=== PATIENT | male | born 1965 | race Caucasian/White ===

== ENCOUNTER 2023-08-07 19:13 | Emergency (ER) | payer OTHER ==
[2023-08-07 19:25] VITALS: BP 166/92; PULSE 62; RESP 18; TEMP 98.2; BMI 24.1
[2023-08-07] MEDS ORDERED: IBUPROFEN 600 MG TABLET (FP) PO ONE ×2 (20:52→20:55)
== END 2023-08-07 22:35 | disposition home or self-care (01) ==
LOC: JERFT 19:13 → JER 19:13 → JERFT 22:35
DX: S16.1XXA Strain of muscle, fascia and tendon at neck level, initial encounter (principal); M54.50 Low back pain, unspecified; V49.40XA Driver injured in collision with unspecified motor vehicles in traffic accident, initial encounter; Y92.9 Unspecified place or not applicable
CPT/HCPCS: 72050-TC-FY; 99283-25